=== PATIENT | male | born 1970 | race Caucasian/White ===

== ENCOUNTER 2019-07-19 06:24 | Emergency (ER) | payer MEDICAID ==
[~2019-07-19] VITALS: Ht 172.7 cm; Wt 99.8 kg
[2019-07-19 06:28] VITALS: BP 125/87
--- NOTE | 2019-07-19 06:38 | NUR ---
PT AMBULATED TO BED 06 WITH STEADY GAIT. URINE SAMPLE PROVIDED.
--- NOTE | 2019-07-19 06:39 | NUR ---
49Y MALE, PRESENTED TO ED, C/O BURNING SENSATION UPON URINATION X2DAYS, PAIN OF 4/10 THAT RADIATES TO LOWER BACK. DENIES PENILE DISCHARGE. PT STATES HAVING UTI BEFORE AND WAS GIVEN BACTRIM. DENIES FEVER/CHILLS, NO N/V/D. AAOX4, RR EVEN UNLABORED, GCS 15, EDMD MADE AWARE, WILL CONTINUE TO MONITOR CLOSELY. PMH-- ACUTE KIDNEY FAILURE, HTN
--- NOTE | 2019-07-19 07:17 | NUR ---
REPORT GIVEN TO CONY JIMENEZ, PT IN STABLE CONDITION AT THIS TIME.
--- NOTE | 2019-07-19 07:40 | NUR ---
IV removed, catheter intact and site benign. Applied folded 4x4 gauze and tape to stop bleeding.
[2019-07-19 07:43] VITALS: BP 134/71
--- NOTE | 2019-07-19 07:43 | NUR ---
Patient discharged with v/s stable. Written and verbal after care instructions given and explained. Patient alert, oriented and verbalized understanding of instructions. Ambulatory with steady gait. All questions addressed prior to discharge. ID band removed. Patient advised to follow up with PMD. Rx of CIPRO, MOTRIN, PYRIDUM given. Patient educated on indication of medication including possible reaction and side effects. Opportunity to ask questions provided and answered.
[2019-07-19 07:52] LABS: BILIRUBIN,URINE NEGATIVE (NEGATIVE); BLOOD, URINE 2+ (NEGATIVE); LEUKOCYTE ESTERASE ,URINE NEGATIVE (NEGATIVE); NITRITE, URINE NEGATIVE (NEGATIVE); UGLUCOSE NEGATIVE (NEGATIVE)
[2019-07-19 08:03] LABS: APPEARANCE,URINE CLEAR (CLEAR); WBC,URINE 0-5 /HPF (0-5)
[2019-07-19 08:05] LABS: COLOR,URINE YELLOW (YELLOW)
[2019-07-21 06:07] LABS: CHLAMYDIA TRACHOMATIS AMP DNA Negative (Negative)
== END 2019-07-19 07:43 | disposition home or self-care (01) ==
LOC: MED 06:24
DX: N39.0 Urinary tract infection, site not specified (principal); I10 Essential (primary) hypertension; Z98.890 Other specified postprocedural states; Z88.2 Allergy status to sulfonamides; Z88.1 Allergy status to other antibiotic agents
CPT/HCPCS: 36415; 81001; 99283

== ENCOUNTER 2020-04-10 05:25 | Emergency (ER) | payer MEDICAID, SELFPAY ==
[~2020-04-10] VITALS: Ht 172.7 cm; Wt 99.8 kg
--- NOTE | 2020-04-10 05:25 | NUR ---
PT TAKEN TO OF
[2020-04-10 05:30] VITALS: BP 146/88
--- NOTE | 2020-04-10 05:30 | NUR ---
50 Y/O MALE PRESENTS TO ER WITH C/O BODY ACHES, FEVER: 99.9, DRY COUGH X 3 DAYS 5/10 BODY ACHE/PAIN. C/O HEADACHE, DENIES SOB, NAUSEA, VOMITING, DIARRHEA. O2: 97%, VSS. R/R EQUAL, AND UNLABORED. PT IN TENT, WILL BE EVALUATED BY ERMD. WILL CONTINUE TO MONITOR. PMH: HTN ALLERGY: BACTRIM COVID PRECAUTIONS IN PLACE.
--- NOTE | 2020-04-10 05:50 | NUR ---
PT BEING EVALUATED BY ERMD IN TENT
--- NOTE | 2020-04-10 06:11 | NUR ---
COVID SWAB COLLECTED AND SENT TO LAB.
--- NOTE | 2020-04-13 12:05 | NUR ---
Positive covid report received from Lab. Will send copy of report to house painter and contact pt.
== END 2020-04-10 06:11 | disposition home or self-care (01) ==
LOC: MED 05:25 → EEVIPCON 05:25 → MED 06:11
DX: U07.1 COVID-19 (principal); I12.9 Hypertensive chronic kidney disease with stage 1 through stage 4 chronic kidney disease, or unspecified chronic kidney disease; N18.9 Chronic kidney disease, unspecified; Z88.2 Allergy status to sulfonamides
CPT/HCPCS: 99283; U0003